=== PATIENT | female | born 1995 | race Caucasian/White ===

== ENCOUNTER 2024-06-05 19:08 | Emergency (ER) | payer BC, SELFPAY ==
[2024-06-05 19:12] VITALS: BP 151/89; PULSE 119; RESP 16; TEMP 36.6; O2SAT 99; BMI 24.3
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
--- NOTE | 2024-06-05 19:31 | PC.NURSE ---
Pt alert and orientedx4, pupils 3mm bilat PERRLA, denies LOC, N/V. No current bleeding of nose, reports pain 1/10 of nose and right eye, no abrasions, small amount of swelling to right eyebrow. Mildly tender, no bruising or discoloration to right eye brow or nose.
[2024-06-05] MEDS: TET/DIPHTH/PERT-ADULT 0.5ML SYRINGE 0.5 ML IM (19:36)
[2024-06-05 19:52] VITALS: BP 148/95; PULSE 98; RESP 16; TEMP 36.6; O2SAT 100
== END 2024-06-05 19:53 | disposition home or self-care (01) ==
PROVIDERS: Emergency Provider Emergency Medicine
DX: S09.93XA Unspecified injury of face, initial encounter (principal); W22.8XXA Striking against or struck by other objects, initial encounter; Y92.9 Unspecified place or not applicable
CPT/HCPCS: 90471; 90715; 99283